=== PATIENT | female | born 1965 | race Caucasian/White ===

== ENCOUNTER → 2021-04-23 | Day surgery (SDC) | payer BC ==
[~2021-04-23] MED LIST: Ketamine 200 MG/20 ML MDV ONE; Propofol 200 MG/20 ML SDV ONE; fentaNYL 100 MCG/2 ML SDV ONE
[2021-04-23] MEDS: Lactated Ringers 1,000 ML IV SCH (10:25)
[2021-04-23 12:48] VITALS: BP 109/61; PULSE 68
--- NOTE | 2021-04-24 05:22 | OR ---
DATE OF OPERATION: 04/23/2021 PREOPERATIVE DIAGNOSIS: FOLLOWUP POLYPS. POSTOPERATIVE DIAGNOSIS: FOLLOWUP POLYPS. SURGEON: Christopher Negron MD PROCEDURE: FULL-LENGTH COLONOSCOPY WITH BIOPSY X2. ANESTHESIA: MAC. COMPLICATIONS: None. SPECIMEN: Rectosigmoid biopsy x2. FINDINGS: 1. Full-length colonoscopy. 2. Mild sigmoid diverticulosis. 3. Focal colitis, rectosigmoid junction. RECOMMENDATIONS: Routine colonoscopy every 10 years. At this point, the patient should have close followup with Alyx Brown for path report. INDICATIONS: Patient is due for routine 5-year followup endoscopy for history of polyps. DESCRIPTION OF PROCEDURE: The patient is prepped and draped, placed in the left lateral decubitus position. A lubricated Olympus colonoscope was inserted and easily advanced to the cecum. Direct visualization of ileocecal valve and appendiceal orifice was accomplished. The bowel prep was excellent. Upon withdrawal of the scope, the cecum, ascending and transverse colon completely benign. No signs of any lesions in the descending colon. The patient does have scattered diverticular disease throughout most of the sigmoid and rectosigmoid regions, mild in severity. I could find no polyps, masses, ulcerations, or obvious bleeding sites. No vascular abnormalities. At the rectosigmoid junction, the patient does have about a 5 to 6 cm area of focal colitis, circumferential, erythematous without any ulceration or bleeding. Two biopsies of customer account representative areas were taken. The rectal vault was benign. Retroflexion showed no perianal lesions. Air was suctioned and the scope was removed without complication. YING/DREL /[id number]
== END ==
LOC: CC.SDS 10:13
PROVIDERS: ATTEND Family Medicine
DX: Z12.11 Encounter for screening for malignant neoplasm of colon (principal); K57.30 Diverticulosis of large intestine without perforation or abscess without bleeding; K52.9 Noninfective gastroenteritis and colitis, unspecified; E78.5 Hyperlipidemia, unspecified; E03.9 Hypothyroidism, unspecified; M81.0 Age-related osteoporosis without current pathological fracture; E55.9 Vitamin D deficiency, unspecified; J30.9 Allergic rhinitis, unspecified; Z88.0 Allergy status to penicillin; Z79.899 Other long term (current) drug therapy; Z79.890 Hormone replacement therapy; Z98.890 Other specified postprocedural states
CPT/HCPCS: J2704; J3010; J7120

== ENCOUNTER 2024-07-19 19:56 | Emergency (ER) | payer BC ==
[2024-07-19 20:04] VITALS: BP 142/78; PULSE 100
[2024-07-19] MEDS: cefTRIAXone 1 GM, Lidocaine 1% 2.1 ML IM SCH (20:24)
[2024-07-19] MEDS: methylPREDNISolone Sodium Succinate 40 MG/1 ML SDV IM ONE (20:25)
[2024-07-19] MEDS: Albuterol/Ipratropium 3.0-0.5 MG/3 ML Neb Soln NEB ONE (20:26)
[2024-07-19] MEDS: Albuterol 6.7 GM Inhaler INH PRN (20:41)
== END 2024-07-19 20:42 | disposition home or self-care (01) ==
LOC: CC.ED 19:56
DX: J40 Bronchitis, not specified as acute or chronic (principal); Z88.0 Allergy status to penicillin; Z79.51 Long term (current) use of inhaled steroids; Z79.890 Hormone replacement therapy; Z79.899 Other long term (current) drug therapy
CPT/HCPCS: 96372; 99283; A9270-GY; J0696; J2919; J3490; J7620-GY